=== PATIENT | female | born 1965 | race Caucasian/White ===

== ENCOUNTER 2020-04-21 16:57 | Emergency (ER) | payer OTHER, SELFPAY ==
[2020-04-21] VITALS (11 sets, daily range): BP systolic 118–183; BP diastolic 68–119; PULSE 92–113; RESP 13–21; TEMP 36.7–37.1; O2SAT 93–98
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
--- NOTE | ~2020-04-21 | XR_ITS ---
XR ankle RT 2V DATE: 04/21/2020 19:16 INDICATION: Postoperative reduction examination TECHNIQUE: Postreduction two-view examination COMPARISON: 04/21/2020 right ankle FINDINGS: There is partial reduction of the lateral dislocation at the talonavicular and talocalcanea l joints. Associated fracture or fractures are suggested. Mild posterior and mildly prominent plantar calcaneal enthesopathy. IMPRESSION: Improvement of lateral dislocation at talonavicular and talocalcaneal joints; fractures a re suggested Reviewed, dictated and finalized at location A. PAINTER IMPRESSION: Improvement of lateral dislocation at talonavicular and talocalcane al joints; fractures are suggested
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
--- NOTE | ~2020-04-21 | XR_ITS ---
XR ankle RT 2V DATE: 04/21/2020 20:27 INDICATION: Post reduction examination TECHNIQUE: 2 views COMPARISON: 04/21/2020 pre-reduction and first post-reduction examination FINDINGS: There is a posterior splint. There is reduction of the talonavicular and talocalcaneal lateral dislocations. Anterior and probable posterior talar fractures are suggested. CT examination of the foot would likely provide more definitive information. IMPRESSION: Reduction of lateral dislocation at the talonavicular and talocalcaneal joints; probable anterior and posterior talar fractures. Additional fractures are not excluded Reviewed, dictated and finalized at location A. RITY INTERN IMPRESSION: Reduction of lateral dislocation at the talonavicular and talocalca maria alejandra joints; probable anterior and posterior talar fractures. Additional fractu res are not excluded
--- NOTE | 2020-04-21 17:08 | ECG_ITS ---
Measurements Intervals [place] Rate: 101 P: 31 [place]: 139 QRS: 19 QRSD: 94 T: 45 QT: 341 QTc: 442 Interpretive Statements SINUS TACHYCARDIA BORDERLINE T WAVE ABNORMALITY- INFERIOR LEADS BASELINE ARTIFACT- I, II, III, AVR, AVL, AVF BORDERLINE ECG Electronically Signed On 04-21-2020 17:40:14 MANAGER COMPLETIONS by Bg Pantoja D.O.
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
[2020-04-21] MEDS: HYDROmorphone HCL INJ (*CRX) 1 MG/ML SYR 0.5 MG IV PUSH (17:33)
[2020-04-21] MEDS: ONDANSETRON INJ 4 MG/2 ML VIAL IV PUSH (17:33)
[2020-04-21 17:47] LABS: Estimated Glomerular Filt Rate > 60
[2020-04-21 17:57] LABS: Basophils Percent Auto 0.5 % (0.2-1.2); Eosinophils Absolute Auto 0.1 K/mm3 (0-0.3); Eosinophils Percent Auto 0.7 % (0-4.4); Hematocrit 37.1 % (37.0-47.0); Hemoglobin 12.4 g/dL (12.0-15.0); Immature Granulocyte Absolute 0.08 K/mm3 (0.00-0.031); Lymphocytes Absolute Auto 1.18 K/mm3 (0.9-3.2); Lymphocytes Percent Auto 15.4 % (18.3-44.2); Mean Corpuscular HGB Conc 33.4 g/dl (32-36); Mean Corpuscular Hemoglobin 30.8 pg (26-34); Mean Corpuscular Volume 92.3 fl (80-100); Mean Platelet Volume 11.5 fl (7.4-10.4); Monocytes Absolute Auto 0.3 K/mm3 (0.1-0.6); Neutrophils Percent Auto 78.4 % (45.5-73.1); Platelet Count Result 253 k/mm3 (150-375); Red Blood Count 4.02 M/mm3 (4.2-5.4); Red Cell Distribution Width 13.3 % (11.5-14.5); White Blood Count 7.7 K/mm3 (4.5-10.0)
[2020-04-21 18:12] LABS: Alanine Aminotransferase 16 U/L (4-35); Albumin Level 4.4 g/dL (3.5-5.1); Alkaline Phosphatase 72 U/L (38-126); Anion Gap 4 mmol/L (8-16); Aspartate Amino Transferase 24 U/L (14-36); Bilirubin,Total 0.6 mg/dL (0.2-1.3); Blood Urea Nitrogen 14 mg/dL (7-17); Calcium 9.9 mg/dL (8.4-10.2); Carbon Dioxide 33 mmol/L (22-30); Chloride 102 mmol/L (98-107); Estimated Glomerular Filt Rate > 60; Glucose 108 mg/dL (65-105); Lipase 69 U/L (23-300); Potassium 4.3 mmol/L (3.4-5.0); Sodium 139 mmol/L (137-145)
[2020-04-21 18:14] LABS: INR 0.9; Prothrombin Time 12.8 Seconds (11.1-14.7)
[2020-04-21 18:15] LABS: Partial Thromboplastin Time 26.6 SECONDS (22.3-36.8)
[2020-04-21] MEDS: fentaNYL CITRATE INJ (*CRX) 100 MCG/2 ML VIAL IV PUSH (18:59)
--- NOTE | 2020-04-21 19:12 | PC.NURSE ---
1858 - 50 mcg fentanyl IVP administered by . 185 - 70 mcg Propofol IVP administered by MD. Patient remains awake. 190 - 30 mcg Propofol IVP administered by MD. 190 - Closed reduction of right ankle successful. X-ray ordered and called per VO from SHUN Mosley.
[2020-04-21] MEDS: PROPOFOL IV EMULSION 200 MG/20 ML VIAL IV PUSH ×2 (19:21→20:01)
--- NOTE | 2020-04-21 19:40 | PC.NURSE ---
1939 - Report called to NORBERTO Amor charge hand.
--- NOTE | 2020-04-21 20:13 | PC.NURSE ---
called [facility] to request transport to [facility] er. ETA 2100
[2020-04-21] MEDS: fentaNYL CITRATE INJ (*CRX) 100 MCG/2 ML VIAL 50 MCG IV PUSH (20:50)
--- NOTE | 2020-04-21 21:17 | PC.NURSE ---
2116 - u called with update that patient is on her way there by EMS now.
== END 2020-04-21 21:19 | disposition short-term general hospital (02) ==
PROVIDERS: Emergency Medicine; Physician Assistant; Emergency Provider Emergency Medicine
DX: S22.22XA Fracture of body of sternum, initial encounter for closed fracture (principal); S93.04XA Dislocation of right ankle joint, initial encounter; R00.0 Tachycardia, unspecified; F32.9 Major depressive disorder, single episode, unspecified; K21.9 Gastro-esophageal reflux disease without esophagitis; V43.52XA Car driver injured in collision with other type car in traffic accident, initial encounter
CPT/HCPCS: 27840; 70450; 71260; 72125; 73590; 73600; 74177; 80053; 83690; 85025; 85610; 85730; 93005; 96365; 96366; 96375; 96376; 99285; J0131; J1170; J2405; J2704; J3010; Q9967

== ENCOUNTER 2024-11-29 13:54 | Outpatient (CLI) | payer OTHER, SELFPAY ==
--- NOTE | ~2024-11-29 | XR_ITS ---
HISTORY: RADICULOPATHY COMPARISON: None TECHNIQUE: 2 views of the thoracic spine were performed FINDINGS: No acute compression fracture is present. Bone mineralization is age-appropriate. Degenerative disease is identified with osteophyte formation, disc space narrowing and endplate dsouza es. IMPRESSION: Degenerative disease, without acute fracture Reviewed, dictated and finalized at location A.
--- NOTE | ~2024-11-29 | XR_ITS ---
Lumbosacral Spine: AP and lateral views Clinical History: Pain Findings: The normal lordotic curve is maintained. The vertebral bodies and posterior elements are i ntact. The intervertebral disc spaces are preserved. There is moderate to advanced facet arthropathy throughout the lumbar spine. The sacroiliac joints are normally outlined. Impression: Extensive facet arthropathy, as above. Reviewed, dictated and finalized at location . Impression: Extensive facet arthropathy, as above.
== END 2024-11-29 13:55 | disposition home or self-care (01) ==
PROVIDERS: PCP Internal Medicine Gastroenterology; Visit Provider Pain Medicine Interventional Pain Medicine
DX: M51.34 Other intervertebral disc degeneration, thoracic region (principal); M47.817 Spondylosis without myelopathy or radiculopathy, lumbosacral region
CPT/HCPCS: 72072; 72100

== ENCOUNTER 2024-12-20 14:14 | Outpatient (CLI) | payer OTHER, SELFPAY ==
--- NOTE | ~2024-12-20 | XR_ITS ---
EXAM/ PROCEDURE: XR ankle RT min 3V - 12/20/2024 14:39 CDT HISTORY: 59 years old Female with PAIN IN UNSPEC ANKLE AND JOINT COMPARISON: None available TECHNIQUE: Four view(s) FINDINGS/ IMPRESSION: There are no fractures or dislocations.Joint space narrowing, subchondral sclerosis, subchondral cyst formation and osteophyte formation, compatible with mild osteoarthritis. Status post ORIF. Calcaneal enthesopathy. Reviewed, dictated and finalized at location A.
--- NOTE | ~2024-12-20 | XR_ITS ---
EXAM/ PROCEDURE: XR ankle LT min 3V - 12/20/2024 14:39 CDT HISTORY: 59 years old Female with PAIN IN UNSPEC ANKLE AND JOINT COMPARISON: None available TECHNIQUE: Three view(s) FINDINGS/ IMPRESSION: There are no fractures or dislocations.Joint space narrowing, subchondral sclerosis, subchondral cyst formation and osteophyte formation, compatible with mild osteoarthritis. Calcaneal enthesopathy. Reviewed, dictated and finalized at location A.
--- OUTSIDE RECORDS SUMMARY | 2024-12-20 14:26 | XMS_ITS | Clinical Summary ---
Author Organization [facility] Address [address] [place] [address] Care Team Providers Care Mission Assessment Specialist Name Role Phone Srinath Reddy MD Primary Care Provider [phone] Allergies Active Allergy Reactions Criticality Noted Date Comments Sulfa (Sulfonamide Antibiotics) Other (See comments) Reaction: Unknown, Vancomycin Itching Medium 05/12/2020 Burning sensation; feels like bugs crawling all over her Medications busPIRone (BUSPAR) 7.5 mg tablet Take 7.5 mg by mouth 2 (two) times a day 12/14/2017 Active citalopram (CeleXA) 40 mg tablet Take 40 mg by mouth daily 06/12/1969 Active gabapentin (NEURONTIN) 300 mg capsule Take 300 mg by mouth 3 (three) times a day Active HYDROcodone-roosevelt taminophen (NORCO) 10-325 mg per tablet Take 1 tablet by mouth 3 (three) times a day as needed 09/03/2020 Active methocarbamoL (ROBAXIN) 750 mg tablet 01/25/2021 Active omeprazole (PriLOSEC) 40 mg capsule Take by mouth 06/12/1969 Active zolpidem (AMBIEN) 5 mg tablet Take 5 mg by mouth nightly as needed 06/12/1969 Active Active Problems Problem Noted Date Diagnosed Date Class 2 obesity in adult 04/15/2021 Assessment & Plan (04/15/2021 9:55 AM CDT): We have discussed with the patient that with a BMI of over 35 butunder 40 she would need to have some other medical comorbidities ( hypertension, hyperlipidemia, sleep apnea, diabetes ). Unfortunately she does not have any of these issues. I have discussed that there are still some options. I am going to make a referral to the dietitian to work on some meal planning. I am also going to send a referral to Physical therapy to assist with some exercises that she can manage with her lower extremity pain. I have also discussed referral to an obesity medicine doctor where they can discuss some oral medication options to help with weight loss. She is in understanding of the plan. Surgical History Surgery Date Site/Laterality Comments TOTAL ABDOMINAL HYSTERECTOMY Hysterectomy, total TONSILLECTOMY Tonsillectomy Medical History Medical History Date Comments Hx Other Medical back pain; Comm ents: DNM 01/28/2014 - Hx Other Medical Headache, migra ine Depression Depression Family History Medical History Relation Name Comments Cancer Other 1 Cancer, unknown ; Alcohol abuse Other 2 Alcoholism; Hypertension Other 3 Hypertension; Relation Name Status Comments Other 1 Other 2 Other 3 Social History Tobacco Use Types Packs/Day Years Used Date Smoking Tobacco: Never Alcohol Use Standard Drinks/Week Comments Yes 0 (1 standard drink = 0.6 oz pur e alcohol) Personal Safety Answer Date Recorded Getting School Help Needed Not on file 06/15 Comments Unknown Sex and Gender Information Value Date Recorded Sex Assigned at Not on file Legal Sex 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 Gender Identity Not on file Sexual Orientation Not on file Obstetrics History Last Filed Vital Signs Vital Sign Reading Time Taken Comments Blood Pressure 154/92 04/15/2021 9:35 AM CDT Pulse 81 04/15/2021 9:35 AM CDT Temperature 36 C (96.8 F) 04/15/2021 9:35 AM CDT Respiratory Rate 16 04/15/2021 9:35 AM CDT Oxygen Saturation 94% 04/15/2021 9:35 AM CDT Inhaled Oxygen Concentration - - Weight 101.2 kg (223 lb 3.2 oz) 04/15/2021 9:35 AM CDT Height 167.6 cm (5' 6) 04/15/2021 9:35 AM CDT Body Mass Index 36.03 04/15/2021 9:35 AM CDT Plan of Treatment Not on file Insurance Care Teams Mission Assessment Specialist Relationship Specialty Start Date End Date Srinath Reddy MD [address] [address] PCP - General 01/28/14
--- OUTSIDE RECORDS SUMMARY | 2024-12-20 14:26 | XMS_ITS | Clinical Summary ---
Author Organization [facility] Address [address] [place] [address] Care Team Providers Care Tableau Administrator Name Role Phone Zackary Chaves MD Primary Care Provider [phone] Source Comments [facility],non-owned Affiliates and Associated Physician Practices is amultiple site organization consisting of ambulatory clinics and hospital sitesin [place], [place], [place] and [place]. This disclosure is being madepursuant to the Care Everywhere program and may not contain all information available regarding this patient. Last updated 18.[facility] Allergies Active Allergy Reactions Criticality Noted Date Comments Sulfa Drugs Rash Medium 07/02/2014 Vancomycin Itching Medium 05/12/2020 Burning sensation; feels like bugs crawling all over her Medications * Be aware that medications may not be up to date on this document. Alwaysverify current medications with the patient. busPIRone (BUSPAR) 7.5 MG tablet Take 1 (one) tablet by mouth 3 times daily 4 8 Active citalopram (CELEXA) 40 MG tablet Take 1 (one) tablet by mouth once daily 5 Active zolpidem (AMBIEN) 5 MG tablet Take 1 (one) tablet by mouth nightly as needed 0 Active gabapentin (NEURONTIN) 300 MG capsule Take 1 (one) capsule by mouth 3 times daily as needed Active HYDROcodone-acet aminophen (NORCO) 10-325 MG tablet Take 1 (one) tablet by mouth 3 times daily as needed 1 Active metoprolol tartrate IR (Lopressor) 25 MG tablet Take 1 (one) tablet by mouth 2 times daily 3 Active ondansetron, disintegrating, (Zofran ODT) 4 MG tabletIndication s:Gastro-esophag eal reflux disease without esophagitis,Naus ea Take 1 (one) tablet by mouth every 6 hours as needed for Nausea/Vomitin g Allow tablet to dissolve on the tongue 60 tablet 2 3 Active rOPINIRole (Requip) 1 MG tabletIndication s:Restless legs syndrome (RLS) TAKE 1 TABLET BY MOUTH EVERYDAY AT BEDTIME 90 tablet 3 4 Active colesevelam (Welchol) 625 MG tablet Take 1 (one) tablet by mouth 3 times daily Take one dose in morning and two doses in evening before bed. 90 tablet 5 5 Active omeprazole (PriLOSEC) 20 MG capsuleIndicatio ns:Dickisnon's Esophagus Take 1 (one) capsule by mouth 2 times daily, before breakfast and supper Reasons: Dickinson's Esophagus 60 capsule 5 5 Active metFORMIN ER 24hr (Glucophage XR) 500 MG tabletIndication s:Class 3 severe obesity with serious comorbidity and body mass index (BMI) of 40.0 to 44.9 in adult, unspecified obesity type (HCC),Metabolic syndrome Take 1 (one) tablet by mouth 2 times daily 60 tablet 5 5 Active Active Problems Problem Noted Date Diagnosed Date Metabolic syndrome 03/02/2023 Binge eating disorder 03/02/2023 Benign essential hypertension 08/23/2022 Hyperlipidemia 08/23/2022 Finding of above normal blood pressure 3 Palpitations 07/19/2022 Paraesophageal hernia 07/24/2020 Closed fracture of sternum 04/22/2020 Closed right ankle fracture 04/22/2020 Fatigue 10/20/2015 Gastro-esophageal reflux disease without esophag itis 09/07/2015 Overview (09/11/2017): Large hiatal hernia 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 09/07/2015 Overview (09/11/2017): Needs to be confirmed Benign neoplasm of colon 09/07/2015 Overview (09/11/2017): 2008 colonoscopy small adenoma Obesity 09/07/2015 Other specified anxiety disorders 09/07/2015 Iron deficiency 09/07/2015 Overview (09/11/2017): Iron infusions 2015 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 2015 Overview (09/11/2017): Diarrhea predominant Colon adenoma 09/07/2015 Overview (05/02/2024): 2008 colonoscopy small adenoma Chronic pain disorder 07/07/2015 Iron deficiency anemia 07/07/2015 Vitamin D deficiency 07/07/2015 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 Overview (05/02/2024): Opiate dependent for chronic pain Closed displaced fracture of posterior process of right talus Closed traumatic dislocation of right subtalar j oint Resolved Problems Problem Noted Date Diagnosed Date Resolved Date Osteomyelitis 09/07/2015 12/11/2017 Overview (09/11/2017): Opiate dependent for chronic pain Encounters Date Type Department Care Team Description 11/07/2024 Refill [facility] - GI [address] [place] [address] Jorge Luis Guthrie III, MD MEDICATION REFILL 10/16/2024 3:00 PM CDT Office Visit [facility] - General Surgery [address] [place] [address] Jeaneth Schneider MD Ventral hernia without obstruction or gangrene (Primary Dx); Rectus diastasis 10/16/2024 Travel 09/20/2024 Travel from Last 3 Months Immunizations Immunization Administration Dates Next Due Covid iLogon primary monovalent 12+ yr 0.3mL Pur ple cap 01/08/2021 INFLUENZA VACCINE, QUADR. (F LUZONE; FLULAVAL; FLUARIX; AFLURIA QUADRIVALENT; 6MO+), 0.5 ML (IIV4) 04/24/2020 Family History Medical History Relation Name Comments Hypertension Brother Donald Cancer - Lung Father small cell shelby g CA None Known Mother multiple hernia s Cancer - Breast Paternal Aunt Cancer - Ovarian Paternal Aunt Depression Sister 1 Lora Crohn's Disease Sister 3 Judith CVA Sister 4 Jeaneth Other - Rheumatologic Sister 4 Jeaneth Fibrom yalgia Relation Name Status Comments Brother Donald Alive Father Mother Paternal Aunt Sister 1 Lora Alive Sister 2 Floridalma Alive Sister 3 Judith Alive Sister 4 Jeaneth Alive Social History Tobacco Use Types Packs/Day Years Used Date Smoking Tobacco: Former Cigarettes 2.5 5 0 06/12/1983 - 06/12/1988 Smokeless Tobacco: Never Tobacco Cessation:Counseling Given: Not Answered Alcohol Use Standard Drinks/Week Comments Never 0 (1 standard drink = 0.6 oz pur e alcohol) AUDIT-C Answer Date Recorded Q1: How often do you have a drink containing alc ohol? Never 07/24/2021 Q2: How many drinks containi ng alcohol do you have on a typical day when you are drinking? 1 or 2 07/24/2021 Q3: How often do you have six or more drinks on one occasion? 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 on file Not on file Not on f ile Last Filed Vital Signs Vital Sign Reading Time Taken Comments Blood Pressure 124/85 10/16/2024 3:09 PM CDT Pulse 72 10/16/2024 3:09 PM CDT Temperature 36.7 C (98 F) 10/16/2024 3:09 PM CDT Respiratory Rate 17 10/16/2024 3:09 PM CDT Oxygen Saturation 99% 10/16/2024 3:09 PM CDT Inhaled Oxygen Concentration - - Weight 106.6 kg (235 lb) 10/16/2024 3:09 PM CDT Height 167.6 cm (5' 6) 10/16/2024 3:09 PM CDT Body Mass Index 37.93 10/16/2024 3:09 PM CDT Plan of Treatment Upcoming Encounters Date Type Department Care Team (Late st Contact Info) Description 03/17/2025 12:30 PM CDT Office Visit [facility] - GI [address] [place] [address], [place] [phone] 03/19/2025 1:00 PM CDT Office Visit [facility] - GI [address] [place] [phone] Jorge Luis Guthrie III, MD [address] [place] [address] [address] [place] [phone] Health Maintenance Due Date Last Done Comments COLOGUARD (AGES 45-75) - COLON CA SCREENING 1966 COLON MONITORING 1966 COLONOSCOPY - COLON CA SCREENING 1966 CT COLONOGRAPHY - COLON CA SCREENING 1966 Colorectal Cancer Screening 1966 FIT - COLON CA SCREENING 1966 FLEX SIG - COLON CA SCREENING 1966 Opioid Medication Agreement - Annual 1966 HIV SCREENING 1981 DTAP/TDAP/TD VACCINES (1 - Tdap) 1985 HEPATITIS B VACCINE (1 of 3 - 19+ 3-dose series) 1985 PAP SMEAR 1987 PNEUMOCOCCAL VACCINE 50+ (1 of 1 - PCV) 01/16/2016 ZOSTER VACCINE (1 of 2) 01/16/2016 MAMMOGRAM 03/20/2020 03/20/2018 COVID-19 VACCINE (2 - season) 2024 01/08/2021 DEPRESSION SCREENING 06/12/2024 05/16/2022 MEDICARE AWV CALENDAR YEAR 2024 INFLUENZA VACCINE (#1) 2025 04/24/2020 SCREENING FOR DIABETES 03/14/2027 , 09/15/2023, 09/15/2023, Additional history exists LIPID TESTING 08/19/2027 08/18/2022 HEPATITIS C SCREENING Completed 08/18/2022 HIB VACCINE Aged Out No longer eligi ble based on patient's age to complete this topic HPV VACCINE Aged Out No longer eligi ble based on patient's age to complete this topic MENINGOCOCCAL (Group B) VACCINE SHARED DECISION-MAKING Aged Out No longer eligible based on patient's age to complete this topic MENINGOCOCCAL GROUPS A/C/Y/W VACCINE Aged Out No longer eligible based on patient's age to complete this topic Goals Goal Patient Goal Type Associated Problems Recent Progress Patient-Stated? Author Medication Management General On track( 025 2:41 PM CDT) Deysi Quezada RN Note: Expected end date: ohgoing Interventions: Take all medications as prescribed Let your doctor know right away about any changes in your medications Make sure to request a refill of your medication at least one week prior to your last dose PAIN General On track( 024 3:47 PM SPINDRAW OPERATOR) Yobany Trent RN Note: Expected end date: ongoing Patient's pain/discomfort is manageable. Interventions: Medical Devices Implanted Type Area Pet Resort Concierge Device Identifier Shelf Expiration Date Model / Serial / Lot Screw 3mm 12mm Slf Drl Lck Strnl Ti Implanted:Qty: 4 on 04/28/2020 by Kb Elizalde MD at [facility] N/A: Sternum Synthes Maxillofacial [id number] / / Screw 3mm 14mm Slf Drl Lck Strnl Ti Implanted:Qty: 13 on 04/28/2020 by Kb Elizalde MD at [facility] N/A: Sternum Synthes Maxillofacial .[id number] / / Plate 13 Hl Lck Wo Rels Pin Strnl Str Ti Implanted:Qty: 2 on 04/28/2020 by Kb Elizalde MD at [facility] N/A: Sternum Synthes Usa [id number] / / Screw 2mm 3mm 24mm T6 Slfret Scrdrvr Implanted:Qty: 1 on 05/25/2020 by Anastacio Calero DO at [facility] Right: Ankle [employer] Trauma [id number] / / Screw 2mm 3mm 32mm T6 Slfret Scrdrvr Implanted:Qty: 1 on 05/25/2020 by Anastacio Calero DO at [facility] Right: Ankle [employer] Trauma [id number] / / Wire K 1.6mm 150mm Troc Pnt Ss Fx Strl Implanted:Qty: 3 on 05/25/2020 by Anastacio Calero DO at [facility] Right: Ankle [employer] [id number] / / Montage Implanted:Qty: 1 on 05/25/2020 by Anastacio Calero DO at [facility] Right: Ankle Abyrx 02/09/2022 [facility]-1001 / [id number] / [id number] Explanted Type Area Pet Resort Concierge Device Identifier Shelf Expiration Date Model / Serial / Lot Screw 3mm 14mm Slf Drl Lck Strnl Ti Explanted:Qty: 1 on 04/28/2020 by Kb Elizalde MD at [facility] N/A: Sternum Synthes Maxillofacial [id number] / / Screw 2mm 3mm 17mm T6 Slfret Scrdrvr Explanted:Qty: 1 on 05/25/2020 by Anastacio Calero DO at [facility] Right: Ankle [employer] [id number] / / Pin Hlf 25mm 4mm Jtx Shrt Ti Ntrd Extfix Implanted:Qty: 1 on 04/25/2020 by Dev Sellers MD at [facility] Explanted:Qty: 1 on 06/29/2020 at [facility] Right: Ankle [employer] Trauma [id number] / / Pin Hlf 35mm 5mm Jtx Shrt Ti Ntrd Extfix Implanted:Qty: 2 on 04/25/2020 by Dev Sellers MD at [facility] Explanted:Qty: 2 on 06/29/2020 by Anastacio Calero DO at [facility] Right: Ankle [employer] Trauma [id number] / / Pin Trc 50mm 5mm Jtx Shrt Ti Ntrd Implanted:Qty: 1 on 04/25/2020 by Dev Sellers MD at [facility] Explanted:Qty: 1 on 06/29/2020 by Anastacio Calero DO at [facility] Right: Ankle [employer] Tra[employer] [id number] / / Procedures Procedure Name Priority Date/Time Associated Diagnosis Comments BASIC METABOLIC PANEL (CALCIUM TOTAL) Routine 03/14/2024 3:00 PM CDT Binge eating disorder, unspecified severity LIPID PROFILE Routine 08/18/2022 4:19 PM SPINDRAW OPERATOR Class 3 severe obesity with serious comorbidity and body mass index (BMI) of 40.0 to 44.9 in adult, unspecified obesity type HEPATITIS C AB SCREEN RFLX NAAT QUANT Routine 08/18/2022 4:19 PM SPINDRAW OPERATOR Nonalcoholic fatty liver disease MAMMO BILAT SCREENING Routine 03/20/2018 11:12 AM CDT Breast cancer screening from Last 3 Months or Most Recently Relevant to Health Maintenance Results * (ABNORMAL) BASIC METABOLIC PANEL (CALCIUM TOTAL) (03/14/2024 3:00 PM CDT) BUN 18 7 - 26 mg/dL 03/14/2024 3:39 PM [facility] Creatinine 1.10(H) 0.56 - 0.96 mg/dL 03/14/2024 3:39 PM [facility] Sodium 144 136 - 145 mmol/L 03/14/2024 3:39 PM [facility] Potassium 4.5 3.5 - 4.5 mmol/L 03/14/2024 3:39 PM [facility] Chloride 112(H) 98 - 107 mmol/L 03/14/2024 3:39 PM [facility] CO2 24 22 - 29 mmol/L 03/14/2024 3:39 PM [facility] Glucose 103 70 - 115 mg/dL 03/14/2024 3:39 PM [facility] Calcium 9.1 8.4 - 10.2 mg/dL 03/14/2024 3:39 PM [facility] Anion Gap 8 6 - 16 03/14/2024 3:39 PM [facility] BUN/Creatinine Ratio 16 7 - 23 03/14/2024 3:39 PM CDT [facility] Osmolality Calculated 300(H) 275 - 295 mOsm/kg 03/14/2024 3:39 PM CDT [facility] eGFR by CKD-EPI 58(L) >=90 mL/min/1.7 3 m2 03/14/2024 3:39 PM CDT [facility] Blood BLOOD SPECIMEN / Unknown Lab Venipuncture / Unknown 03/14/2024 3:00 PM CDT 03/14/2024 3:11 PM CDT Jorge Luis Guthrie III, MD LAB - CHEMISTRY ORDERABLE S Final Result Performing Organization Address City/[facility]/ZIP Co de Phone Number [address] [address], [place] [phone] * HEPATITIS C AB SCREEN RFLX NAAT QUANT (08/18/2022 4:19 PM SPINDRAW OPERATOR) Pathologist [facility] Hepatitis C Antibody Non-react vanna Non-reac tive 08/18/2022 6:17 PM SPINDRAW OPERATOR [facility] Comment:Hepatitis C Antibody screen indicates no serologic evidence of past or current infection with Hepatitis C Virus. Patients with unexplained liver disease who are immunocompromised or suspected of having acute Hepatitis C infection may benefit from Nucleic Acid Test (IMANI) for Hepatitis C Viral RNA to confirm Hepatitis C status. Blood BLOOD SPECIMEN / Unknown Lab Venipuncture / Unknown 08/18/2022 4:19 PM SPINDRAW OPERATOR 08/18/2022 5:24 PM SPINDRAW OPERATOR Valery Whitney APRN-VP PACKAGING LAB - CHEMISTRY ORDERABLES Fi nal Result [facility] [address] [place] [phone], [place] [phone] * (ABNORMAL) LIPID PROFILE (08/18/2022 4:19 PM SPINDRAW OPERATOR) Pathologist [facility] Cholesterol Total 252(H) <200 mg/dL 08/18/2022 5:52 PM SPINDRAW OPERATOR [facility] HDL 62 >40 mg/dL 08/18/2022 5:52 PM [facility] Comment: ATP III Classification of HDL Cholesterol: <40 mg/dL: Considered a major risk factor. >60 mg/dL: Considered a negative risk factor. LDL Calculated 154(H) <100 mg/dL 08/18/2022 5:52 PM [facility] Comment: ATP III Classification of LDL Cholesterol: <100 mg/dL: Optimal 100 - 129 mg/dL: Near Optimal/Above Optimal 130 - 159 mg/dL: Borderline High 160 - 189 mg/dL: High >190 mg/dL: Very High Triglycerides 182(H) <150 mg/dL 08/18/2022 5:52 PM [facility] Comment: ATP III Classification of Triglycerides: <150 mg/dL: Normal 150 - 199 mg/dL: Borderline High 200 - 400 mg/dL: High >500 mg/dL: Very High Blood BLOOD SPECIMEN / Unknown Lab Venipuncture / Unknown 08/18/2022 4:19 PM SPINDRAW OPERATOR 08/18/2022 5:18 PM SPINDRAW OPERATOR Jorge Luis Guthrie III, MD LAB - CHEMISTRY ORDERABLE S Final Result [facility] [address] [place] [phone], [facility] [phone] * MAMMO BILAT SCREENING (03/20/2018 11:12 AM CDT) Anatomical Region Laterality Modality Breast Bilateral Mammography 03/26/2018 8:36 AM CDT Impressions 03/26/2018 8:51 AM CDT IMPRESSION: No mammographic evidence of malignancy. ASSESSMENT: BI-RADS Category 1: Negative mammogram. RECOMMENDATION: Bilateral screening mammogram in one year. Dictated by Jakub Simons MD (Recruitment Officer). I, Dr. JEANETH MCCAIN M.D. have personally reviewed and interpreted this examination/study. This report was electronically signed by JEANETH MCCAIN M.D. on 03/26/2018 8:51 AM . Narrative 03/26/2018 8:51 AM CDT BILATERAL SCREENING MAMMOGRAM DATE: March 20, 2018. COMPARISON: Screening mammogram just received from [facility] dated May 26, 2014. HISTORY: Screening mammogram. TECHNIQUE: Images were performed using 3D tomosynthesis images with reconstructed/synthetic 2D images and CAD analysis. BREAST COMPOSITION: There are scattered areas of fibroglandular density. FINDINGS: There is no suspicious mass, clustered microcalcification, or architectural distortion in either breast on 2D or 3D images. There has been no change in the mammographic appearance compared with the prior study. us Jimi Lima MD MAMMO ORDERABLES Final Res ult from Last 3 Months or Most Recently Relevant to Health Maintenance Insurance [facility] [place] MED[place]ARE [place] THIRD REPUBLICAN LIABILITY Libertarian Liability [place] Advance Directives * Full Code (Latest Code Status on File) Date Activated Date Inactivated Comments 08/18/2020 11:50 AM 08/20/2020 2:24 PM * Full Code Date Activated Date Inactivated Comments 05/25/2020 11:53 AM 05/26/2020 6:11 PM * Full Code Date Activated Date Inactivated Comments 04/22/2020 5:16 AM 05/01/2020 6:22 PM Care Teams Tableau Administrator Relationship Specialty [place] [address] [place] [phone] PCP - General 08/15/17
--- OUTSIDE RECORDS SUMMARY | 2024-12-20 14:26 | XMS_ITS | Encounter Summary ---
Author Organization [facility] Address [address] [place] [address] Care Team Providers Care Network Operations Technician Name Role Phone Zackary Chaves MD Primary Care Provider [phone] Reason for Visit * Reason Onset Date Comments MEDICATION REFILL 05/16/2023 Encounter Details Date Type Department Care Team (Late st Contact Info) Description 05/16/2023 Refill [facility] - [address], [facility] [place] [address] Jorge Luis Guthrie III, MD [address] [place] [phone] MEDICATION REFILL Social History Tobacco Use Types Packs/Day Years Used Date Smoking Tobacco: Former Cigarettes 2.5 5 0 06/12/1983 - 06/12/1988 Smokeless Tobacco: Never Alcohol Use Standard Drinks/Week Comments Never 0 [...] on file Legal Sex Female 5:20 PM AIR EXPORT COORDINATOR Gender Identity Not on file Sexual Orientation Not on file 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 Answer Date of Assessment Author No 06/29/2020 7:55 AM Lawrence Alejo RN * Is person blind or have serious difficulty seeing? Answer Date of Assessment Author No 06/29/2020 7:55 AM Lawrence Alejo RN * Does person have serious difficulty walking/climbing stairs? Answer Date of Assessment Author No 06/29/2020 7:55 AM Lawrence Alejo RN * Does person have difficulty dressing/bathing? Answer Date of Assessment Author No 06/29/2020 7:55 AM Lawrence Alejo RN * Does person have difficulty doing errands alone? Answer Date of Assessment Author No 06/29/2020 7:55 AM Lawrence Alejo RN documented as of this encounter Mental Status * Does person have difficulty concentrating/remembering/making decisions? Answer Entry Date Author No 06/29/2020 7:55 AM Lawrence Alejo RN documented in this encounter Plan of Treatment Upcoming Encounters Date Type Department Care Team (Late st Contact Info) Description 03/17/2025 12:30 PM CDT Office Visit [facility] - [address] [phone] 03/19/2025 1:00 PM CDT Office Visit [facility] - [address] [phone] Jorge Luis Guthrie III, MD [address] [place] [phone] documented as of this encounter Goals Goal Patient Goal Type Associated Problems Recent Progress Patient-Stated? Author Medication Management General On track( 025 2:41 PM CDT) No Coreas, Deysi A, RN Note: Expected end date: ohgoing Interventions: Take all medications as prescribed Let your doctor know right away about any changes in your medications Make sure to request a refill of your medication at least one week prior to your last dose PAIN General On track( 024 3:47 PM AIR EXPORT COORDINATOR) Yobany Trent RN Note: Expected end date: ongoing Patient's pain/discomfort is manageable. Interventions: documented as of this encounter Visit Diagnoses Diagnosis Restless legs syndrome (RLS) Class 3 severe obesity with serious comorbidity and body mass index (BMI) of 40.0 to 44.9 in adult, unspecified obesity type (HCC) Binge eating disorder documented in this encounter Care Teams Network Operations Technician Relationship Specialty Start Date End Date Zackary Chaves MD [address] [place] [phone] PCP - General 08/15/17 documented as of this encounter
--- OUTSIDE RECORDS SUMMARY | 2024-12-20 14:26 | XMS_ITS | Referral Summary ---
Author Organization [facility] Building [facility] Address [address] [place] [address] Care Team Providers Care African History Professor Name Role Phone Srinath Reddy MD Primary Care Provider [phone] Allergies Active Allergy Reactions Criticality Noted Date [...] She is in understanding of the plan. 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
== END 2024-12-20 14:15 | disposition home or self-care (01) ==
PROVIDERS: PCP Internal Medicine Gastroenterology; Visit Provider Pain Medicine Interventional Pain Medicine
DX: F33.1 Major depressive disorder, recurrent, moderate (principal); F41.1 Generalized anxiety disorder; M19.079 Primary osteoarthritis, unspecified ankle and foot; M47.814 Spondylosis without myelopathy or radiculopathy, thoracic region; M25.579 Pain in unspecified ankle and joints of unspecified foot
CPT/HCPCS: 73610

== ENCOUNTER 2025-04-23 17:01 | Outpatient (CLI) | payer OTHER, SELFPAY ==
--- NOTE | ~2025-04-23 | XR_ITS ---
[id number] INDICATION: Cervical radiculopathy COMPARISON: None TECHNIQUE: AP, lateral and open-mouth odontoid views views of the cervical spine were obtained. FINDINGS: The examination demonstrates normal cervical height and alignment. No compression fractures or wedging is noted. The paravertebral soft tissues are unremarkable. Degenerative changes with disc space narrowing. IMPRESSION: No acute fracture or subluxation. Degenerative changes with disc space narrowing. Reviewed, dictated and finalized at location S. TABLE WASHING MACHINE OPERATOR
--- OUTSIDE RECORDS SUMMARY | 2025-04-23 17:06 | XMS_ITS | Clinical Summary ---
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
--- OUTSIDE RECORDS SUMMARY | 2025-04-23 17:06 | XMS_ITS | Encounter Summary ---
Author Organization 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 Author Medication Management General On track( 025 1:18 PM CDT) No Deysi Coreas RN Note: Expected end date: ohgoing Interventions: Take all medications as prescribed Let your doctor know right away about any changes in your medications Make sure to request a refill of your medication at least one week prior to your last dose PAIN General On track( 024 3:47 PM SHEET ROCK INSTALLATION HELPER) No Yobany Roca RN Note: Expected end date: ongoing Patient's pain/discomfort is manageable. Interventions: documented as of this encounter Visit Diagnoses Not on filedocumented in this encounter Care Teams Security Chief Museum Relationship Specialty Start Date End Date Zackary Chaves MD [address] [place] [phone] PCP - General 08/15/17 documented as of this encounter
--- OUTSIDE RECORDS SUMMARY | 2025-04-23 17:06 | XMS_ITS | Encounter Summary ---
Author Organization [facility] Address [address] [address] Care Team Providers Care Director Of Cardiopulmonary Services Name Role Phone Zackary Chaves MD Primary Care Provider [phone] Reason for Visit * Reason Onset Date Comments MEDICATION REFILL 05/16/2023 Encounter Details Date Type Department Care Team (Late st Contact Info) Description 05/16/2023 Refill [facility] - [address], [facility] [place] [address] Jorge Luis Guthrie III, MD [address] [place] [phone] MEDICATION REFILL Social History Tobacco Use Types [...] on file Legal Sex Female 5:20 PM SUPERINTENDENT DIVISION Gender Identity Not on file Sexual Orientation Not on file 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 Interventions: documented as of this encounter Visit Diagnoses Diagnosis Restless legs syndrome (RLS) Class 3 severe obesity with serious comorbidity and body mass index (BMI) of 40.0 to 44.9 in adult, unspecified obesity type (HCC) Binge eating disorder documented in this encounter Care Teams Director Of Cardiopulmonary Services Relationship Specialty Start Date End Date Zackary Chaves MD [address] [place] [phone] PCP - General 08/15/17 documented as of this encounter
--- OUTSIDE RECORDS SUMMARY | 2025-04-23 17:06 | XMS_ITS | Clinical Summary ---
Author Organization [facility] Address [address] [facility] [place] [address] Care Team Providers Care Installation Supervisor Name Role Phone Zackary Chaves MD Primary Care Provider [phone] Source Comments [facility],non-owned Affiliates and Associated Physician Practices is amultiple site organization consisting of ambulatory clinics and hospital sitesin [place], [place], [place]. This disclosure is being madepursuant to the Care Everywhere program and may not contain all information available regarding this patient. Last updated 18.[facility] Allergies Active Allergy Reactions Criticality Noted Date Comments Sulfa Drugs Rash Medium 07/02/2014 Vancomycin Itching Medium 05/12/2020 Burning sensation; feels like bugs crawling all over her Medications * Be aware that medications may not be up to date on this document. Alwaysverify current medications with the patient. busPIRone (BUSPAR) 7.5 MG tablet Take 1 (one) tablet by mouth 3 times daily 4 12/15/19 18 Active citalopram (CELEXA) 40 MG tablet Take 1 (one) tablet by mouth once daily 06/16/19 15 Active zolpidem (AMBIEN) 5 MG tablet Take 1 (one) tablet by mouth nightly as needed 05/13/20 20 Active gabapentin (NEURONTIN) 300 MG capsule Take 1 (one) capsule by mouth 3 times daily as needed Active metoprolol tartrate IR (Lopressor) 25 MG tablet Take 1 (one) tablet by mouth 2 times daily 02/19/20 23 Active colesevelam (Welchol) 625 MG tablet Take 1 (one) tablet by mouth 3 times daily Take one dose in morning and two doses in evening before bed. 100 tablet 5 01/15/20 25 Active rOPINIRole (Requip) 1 MG tabletIndicatio ns:Restless legs syndrome (RLS) TAKE 1 TABLET BY MOUTH EVERYDAY AT BEDTIME 90 tablet 02/29/20 25 Active omeprazole (PriLOSEC) 20 MG capsuleIndicati ons:Dickinson's Esophagus Take 1 (one) capsule by mouth 2 times daily, before breakfast and supper Reasons: Dickinson's Esophagus 60 capsule 11 03/07/20 25 Active ondansetron, disintegrating, (Zofran ODT) 4 MG tabletIndicatio ns:Gastro-esoph ageal reflux disease without esophagitis,Gilberto sea Take 1 (one) tablet by mouth every 6 hours as needed for Nausea/Vomit ing Allow tablet to dissolve on the tongue 60 tablet 2 03/17/20 25 Active HYDROcodone-roosevelt taminophen (Calera) 7.5-325 MG tablet Take 1 (one) tablet by mouth 3 times daily as needed for Pain Active metFORMIN ER 24hr (Glucophage XR) 500 MG tabletIndicatio ns:Class 3 severe obesity with serious comorbidity and body mass index (BMI) of 40.0 to 44.9 in adult, unspecified obesity type (HCC),Metabolic syndrome Take 1 (one) tablet by mouth 2 times daily 180 tablet 3 03/27/20 25 Active HYDROcodone-roosevelt taminophen (NORCO) 10-325 MG tablet Take 1 (one) tablet by mouth 3 times daily as needed 09/04/19 21 025 Discontinued(Li st Clean-Up) metFORMIN ER 24hr (Glucophage XR) 500 MG tabletIndicatio ns:Class 3 severe obesity with serious comorbidity and body mass index (BMI) of 40.0 to 44.9 in adult, unspecified obesity type (HCC),Metabolic syndrome Take 1 (one) tablet by mouth 2 times daily 60 tablet 5 11/11/19 25 025 Discontinued metFORMIN ER 24hr (Glucophage XR) 500 MG tabletIndicatio ns:Class 3 severe obesity with serious comorbidity and body mass index (BMI) of 40.0 to 44.9 in adult, unspecified obesity type (HCC),Metabolic syndrome TAKE 1 TABLET BY MOUTH TWICE DAILY 180 tablet 3 03/25/20 25 025 Discontinued(Re order) Active Problems Problem Noted Date Diagnosed Date [...] Encounters Date Type Department Care Team Description 03/28/2025 Results Follow-Up [facility] - [place] [address] [place] [phone] Jorge Luis Guthrie III, MD 03/27/2025 2:42 PM CDT - 03/27/2025 11:59 PM CDT Hospital Encounter [facility] OP DRAW STATION [address] [place] [address] Jorge Luis Guthrie III, MD Discharge Disposition: Home or Self Care 03/27/2025 1:00 PM CDT Office Visit [facility] - [place] [address] [place] [phone] Jorge Luis Guthrie III, MD Class 3 severe obesity with serious comorbidity and body mass index (BMI) of 40.0 to 44.9 in adult, unspecified obesity type (HCC) (Primary Dx); Metabolic syndrome; Restless legs syndrome (RLS); Binge eating disorder, unspecified severity; KATE (generalized anxiety disorder) 03/27/2025 Travel 03/23/2025 Refill [facility] - [place] [address] [place] [phone] Jorge Luis Guthrie III, MD Refill Request 03/17/2025 12:30 PM CDT Office Visit [facility] - [place] [address] [place] [phone] Melvin Toscano MD 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 (Primary Dx); Screening for colorectal cancer; Gastro-esophageal reflux disease without esophagitis; Nausea 03/17/2025 Patient Outreach [facility] [address] [place] [phone] Marilyn Luna, TRUNG 03/17/2025 Travel 03/07/2025 Refill [facility] - [place] [address] [place] [phone] Soniya Sharif PA-C MEDICATION REFILL 02/27/2025 Refill [facility] - [place] [address] [place] [phone] Jorge Luis Guthrie III, MD Refill Request from Last 3 Months Immunizations Immunization Administration Dates Next Due Covid Pfizer primary monovalent 12+ yr 0.3mL Pur ple [...] on file Legal Sex Female 5:20 PM SWITCHING OPERATOR Gender Identity Not on file Sexual Orientation Not on file 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 Not on file Not on f ile Last Filed Vital Signs Vital Sign Reading Time Taken Comments Blood Pressure 119/72 03/27/2025 1:00 PM CDT Pulse 65 03/27/2025 1:00 PM CDT Temperature 37 C (98.6 F) 03/27/2025 1:00 PM CDT Respiratory Rate 17 10/16/2024 3:09 PM CDT Oxygen Saturation 96% 03/27/2025 1:00 PM CDT Inhaled Oxygen Concentration - - Weight 103 kg (227 lb) 03/27/2025 1:00 PM CDT Height 167.6 cm (5' 6) 03/27/2025 1:00 PM CDT Body Mass Index 36.64 03/27/2025 1:00 PM CDT Plan of Treatment Upcoming Encounters Date Type Department Care Team (Late st Contact Info) Description 03/23/2026 12:30 PM CDT Office Visit [facility] - GI [address] [facility] [place] [address] Health Maintenance Due Date Last Done Comments COLOGUARD (AGES 45-75) - COLON CA SCREENING 1966 COLON MONITORING 1966 COLONOSCOPY - COLON CA SCREENING 1966 CT COLONOGRAPHY - COLON CA SCREENING 1966 Colorectal Cancer Screening 1966 FIT - COLON CA SCREENING 1966 FLEX SIG - COLON CA SCREENING 1966 Opioid Medication Agreement - Annual 1966 Opioid Medication Urine Drug Screening 1966 HIV SCREENING 1981 DTAP/TDAP/TD VACCINES (1 - Tdap) 1985 HEPATITIS B VACCINE (1 of 3 - 19+ 3-dose series) 1985 PNEUMOCOCCAL VACCINE 50+ (1 of 1 - PCV) 01/16/2016 ZOSTER VACCINE (1 of 2) 01/16/2016 MAMMOGRAM 03/20/2020 03/20/2018 DEPRESSION SCREENING 06/12/2024 05/16/2022 MEDICARE AWV CALENDAR YEAR 2024 COVID-19 VACCINE (2 - season) 2025 01/08/2021 INFLUENZA VACCINE (#1) 2025 04/24/2020 SCREENING FOR DIABETES 03/27/2028 , 03/27/2025, 03/14/2024, Additional history exists LIPID TESTING 03/27/2030 03/27/2025, 08/18/2022 HEPATITIS C SCREENING Completed 08/18/2022 HIB [...] General On track( 025 1:18 PM CDT) Deysi Quezada RN Note: Expected end date: ohgoing Interventions: Take all medications as prescribed Let your doctor know right away about any changes in your medications Make sure to request a refill of your medication at least one week prior to your last dose PAIN General On track( 024 3:47 PM SWITCHING OPERATOR) Yobany Trent RN Note: Expected end date: ongoing Patient's pain/discomfort is manageable. Interventions: Medical Devices Implanted Type Area Automotive Collision Estimator Device Identifier Shelf Expiration Date Model / Serial / Lot Screw 3mm 12mm Slf Drl Lck Strnl Ti Implanted:Qty: 4 on 04/28/2020 by Kb Elizalde MD at [facility] N/A: Sternum Synthes Maxillofacial .501.112. 01 / / Screw 3mm 14mm Slf Drl Lck Strnl Ti Implanted:Qty: 13 on 04/28/2020 by Kb Elizalde MD at [facility] N/A: Sternum Synthes Maxillofacial .501.114. 01 / / Plate 13 Hl Lck Wo Rels Pin Strnl Str Ti Implanted:Qty: 2 on 04/28/2020 by Kb Elizalde MD at [facility] N/A: Sternum Synthes Usa [id number] / / Screw 2mm 3mm 24mm T6 Slfret Scrdrvr Implanted:Qty: 1 on 05/25/2020 by Anastacio Calero DO at [facility] Right: Ankle [employer]hew Trauma [id number] / / Screw 2mm 3mm 32mm T6 Slfret Scrdrvr Implanted:Qty: 1 on 05/25/2020 by Anastacio Calero DO at [facility] Right: Ankle [employer] Trauma [id number] / / Wire K 1.6mm 150mm Troc Pnt Ss Fx Strl Implanted:Qty: 3 on 05/25/2020 by Anastacio Calero DO at [facility] Right: Ankle [employer] Tra[employer] [id number] / / Montage Implanted:Qty: 1 on 05/25/2020 by Anastacio Calero DO at [facility] Right: Ankle Abyrx 02/09/2022 OS-MON-1001 / [id number] / [id number] Explanted Type Area Automotive Collision Estimator Device Identifier Shelf Expiration Date Model / Serial / Lot Screw 3mm 14mm Slf Drl Lck Strnl Ti Explanted:Qty: 1 on 04/28/2020 by Kb Elizalde MD at [facility] N/A: Sternum Synthes Maxillofacial 04.501.114. [id number] / / Screw 2mm 3mm 17mm T6 Slfret Scrdrvr Explanted:Qty: 1 on 05/25/2020 by Anastacio Calero DO at [facility] Right: Ankle [employer]uma [id number] / / Pin Hlf 25mm 4mm Jtx Shrt Ti Ntrd Extfix Implanted:Qty: 1 on 04/25/2020 by Dev Sellers MD at [facility] Explanted:Qty: 1 on 06/29/2020 at [facility] Right: Ankle [employer] Trauma [id number] / / Pin Hlf 35mm 5mm Jtx Shrt Ti Ntrd Extfix Implanted:Qty: 2 on 04/25/2020 by Dev Sellers MD at [facility] Explanted:Qty: 2 on 06/29/2020 by Anastacio Calero DO at [facility] Right: Ankle [employer] Trauma [id number] / / Pin Trc 50mm 5mm Jtx Shrt Ti Ntrd Implanted:Qty: 1 on 04/25/2020 by Dev Sellers MD at [facility] Explanted:Qty: 1 on 06/29/2020 by Anastacio Calero DO at [facility] Right: Ankle [employer]hew Trauma [id number] / / Procedures Procedure Name Priority Date/Time Associated Diagnosis Comments COMPREHENSIVE METABOLIC PANEL Routine 03/27/2025 3:04 PM CDT Class 3 severe obesity with serious comorbidity and body mass index (BMI) of 40.0 to 44.9 in adult, unspecified obesity type (HCC) LIPID PROFILE Routine 03/27/2025 3:04 PM CDT Class 3 severe obesity with serious comorbidity and body mass index (BMI) of 40.0 to 44.9 in adult, unspecified obesity type (HCC) HEMOGLOBIN A1C Routine 03/27/2025 3:04 PM CDT Class 3 severe obesity with serious comorbidity and body mass index (BMI) of 40.0 to 44.9 in adult, unspecified obesity type (HCC) HEPATITIS C AB SCREEN RFLX NAAT QUANT Routine 08/18/2022 4:19 PM SWITCHING OPERATOR Nonalcoholic fatty liver disease MAMMO BILAT SCREENING Routine 03/20/2018 11:12 AM CDT Breast cancer screening from Last 3 Months or Most Recently Relevant to Health Maintenance Results * HEMOGLOBIN A1C (03/27/2025 3:04 PM CDT) Hemoglobin A1c 5.3 <=5.6 % 03/28/2025 8:51 AM CDT [facility] Estimated Average Glucose 105 mg/dL 03/28/2025 8:51 AM CDT [facility] Comment: HbA1c Interpretation: Normal : < 5.7% Pre-diabetes: 5.7-6.4% Diabetes: Equal to or greater than 6.5% Test results diagnostic of diabetes should be repeated for confirmation. Treatment target values recommended by ADA and other clinical organizations should be used to evaluate metabolic control in patients. Reference: [place] Diabetes Association, Standards of Care in Diabetes -2020 In patients 70 years and older consider HbA1c target range of 7.0-7.5% (Reference: Will Roland et al. JAMDA. 2012) The Sebia assay for the measurement of HbA1c is a National Glycohemoglobin Standardization Program (NGSP) certified method. Blood BLOOD SPECIMEN / Unknown Lab Venipuncture / Unknown 03/27/2025 3:04 PM CDT 03/27/2025 3:35 PM CDT Jorge Luis Guthrie III, MD LAB - CHEMISTRY ORDERABLE S Final Result [facility] [address] [place] [address], [facility] [phone] * (ABNORMAL) COMPREHENSIVE METABOLIC PANEL (03/27/2025 3:04 PM CDT) BUN 29(H) 7 - 26 mg/dL 03/27/2025 4:02 PM [facility] Creatinine 0.83 0.56 - 0.96 mg/dL 03/27/2025 4:02 PM [facility] Sodium 141 136 - 145 mmol/L 03/27/2025 4:02 PM [facility] Potassium 4.9(H) 3.5 - 4.5 mmol/L 03/27/2025 4:02 PM [facility] Chloride 107 98 - 107 mmol/L 03/27/2025 4:02 PM [facility] CO2 28 22 - 29 mmol/L 03/27/2025 4:02 PM [facility] Glucose 90 70 - 99 mg/dL 03/27/2025 4:02 PM [facility] Calcium 9.0 8.4 - 10.2 mg/dL 03/27/2025 4:02 PM [facility] Protein Total 6.3 6.0 - 8.3 g/dL 03/27/2025 4:02 PM [facility] Albumin 4.0 3.4 - 5.0 g/dL 03/27/2025 4:02 PM [facility] Bilirubin Total 0.3 0.2 - 1.2 mg/dL 03/27/2025 4:02 PM [facility] Alkaline Phosphatase 59 40 - 150 U/L 03/27/2025 4:02 PM [facility] ALT 11 5 - 55 U/L 03/27/2025 4:02 PM [facility] AST 12 5 - 34 U/L 03/27/2025 4:02 PM [facility] Anion Gap 6 6 - 16 03/27/2025 4:02 PM [facility] BUN/Creatinine Ratio 35(H) 7 - 23 03/27/2025 4:02 PM [facility] Osmolality Calculated 297(H) 275 - 295 mOsm/kg 03/27/2025 4:02 PM [facility] Albumin/Globulin Ratio 1.7 1.1 - 2.3 03/27/2025 4:02 PM [facility] eGFR by CKD-EPI 81(L) >=90 mL/min/1.7 3 m2 03/27/2025 4:02 PM [facility] Comment:Estimated Glomerular Filtration Rate (eGFR) calculated using the CKD-EPI Creatinine Equation (2020), per the National Kidney Foundation and [place] Society of Nephrology recommendations. Blood BLOOD SPECIMEN / Unknown Lab Venipuncture / Unknown 03/27/2025 3:04 PM CDT 03/27/2025 3:35 PM CDT Jorge Luis Guthrie III, MD LAB - CHEMISTRY ORDERABLE S Final Result [facility] [address] [place] [address], [facility] [phone] * (ABNORMAL) LIPID PROFILE (03/27/2025 3:04 PM CDT) Cholesterol Total 221(H) <200 mg/dL 03/27/2025 4:16 PM [facility] HDL 72 >40 mg/dL 03/27/2025 4:16 PM [facility] Comment: ATP III Classification of HDL Cholesterol: <40 mg/dL: Considered a major risk factor. >60 mg/dL: Considered a negative risk factor. LDL Calculated 125(H) <100 mg/dL 03/27/2025 4:16 PM [facility] Comment: ATP III Classification of LDL Cholesterol: <100 mg/dL: Optimal 100 - 129 mg/dL: Near Optimal/Above Optimal 130 - 159 mg/dL: Borderline High 160 - 189 mg/dL: High >190 mg/dL: Very High LDL is calculated using the Friedewald equation. Triglycerides 121 <150 mg/dL 03/27/2025 4:16 PM CDT [facility] Comment: ATP III Classification of Triglycerides: <150 mg/dL: Normal 150 - 199 mg/dL: Borderline High 200 - 400 mg/dL: High >500 mg/dL: Very High Blood BLOOD SPECIMEN / Unknown Lab Venipuncture / Unknown 03/27/2025 3:04 PM CDT 03/27/2025 3:35 PM CDT Jorge Luis Guthrie III, MD LAB - CHEMISTRY ORDERABLE S Final Result Performing Organization Address [facility]/ZIP Co de Phone Number [facility] [address] [place] [address], [place] [phone] * HEPATITIS C AB SCREEN RFLX NAAT QUANT (08/18/2022 4:19 PM SWITCHING OPERATOR) Pathologist [facility] Hepatitis C Antibody Non-react vanna Non-reac tive 08/18/2022 6:17 PM SWITCHING OPERATOR [facility] Comment:Hepatitis C Antibody screen indicates no serologic evidence of past or current infection with Hepatitis C Virus. Patients with unexplained liver disease who are immunocompromised or suspected of having acute Hepatitis C infection may benefit from Nucleic Acid Test (IMANI) for Hepatitis C Viral RNA to confirm Hepatitis C status. Blood BLOOD SPECIMEN / Unknown Lab Venipuncture / Unknown 08/18/2022 4:19 PM SWITCHING OPERATOR 08/18/2022 5:24 PM SWITCHING OPERATOR us Valery Whitney [id number] ARMOR CREWMAN LAB - CHEMISTRY ORDERABLES Fi nal Result Performing Organization Address City/[facility]/ZIP Co de Phone Number [facility] [address] [place] [address], [place] [phone] * MAMMO BILAT SCREENING (03/20/2018 11:12 AM CDT) Anatomical Region Laterality Modality Breast Bilateral Mammography 03/26/2018 8:36 AM CDT Impressions 03/26/2018 8:51 AM CDT IMPRESSION: No mammographic evidence of malignancy. ASSESSMENT: BI-RADS Category 1: Negative mammogram. RECOMMENDATION: Bilateral screening mammogram in one year. Dictated by Jakub Simons MD (Fiber Optic Splicer). I, Dr. JEANETH MCCAIN M.D. have personally reviewed and interpreted this examination/study. This report was electronically signed by JEANETH MCCAIN M.D. on 03/26/2018 8:51 AM . Narrative 03/26/2018 8:51 AM CDT BILATERAL SCREENING MAMMOGRAM DATE: March 20, 2018. COMPARISON: Screening mammogram just received from [facility] dated May 26, 2014. HISTORY: Screening [...] mammographic appearance compared with the prior study. Jimi Lima MD MAMMO ORDERABLES Final Res ult from Last 3 Months or Most Recently Relevant to Health Maintenance Insurance [facility] [place] MEDICARE [place]V [place] THIRD CONSTITUTION PARTY LIABILITY Republican Liability Advance Directives * Full Code (Latest Code Status on File) Date Activated Date Inactivated Comments 08/18/2020 11:50 AM 08/20/2020 2:24 PM * Full Code Date Activated Date Inactivated Comments 05/25/2020 11:53 AM 05/26/2020 6:11 PM * Full Code Date Activated Date Inactivated Comments 04/22/2020 5:16 AM 05/01/2020 6:22 PM Care Teams Installation Supervisor Relationship Specialty Start Date End Date Zackary Chaves MD [address] [place] [address] PCP - General 08/15/17
== END 2025-04-23 17:02 | disposition home or self-care (01) ==
LOC: ANHIMG 17:03
PROVIDERS: PCP Nurse Practitioner Family; Visit Provider Pain Medicine Interventional Pain Medicine
DX: M48.02 Spinal stenosis, cervical region (principal)
CPT/HCPCS: 72040